=== PATIENT | female | born 1955 | race Caucasian/White ===

== ENCOUNTER 2020-05-27 07:02 | Inpatient (IN) ==
[2020-05-24 12:15] LABS: Basophils % 0.7 % (0.0-0.8); Eosinophils # 0.1 10*3/uL (0.0-0.87); Eosinophils % 1.6 % (0.00-10.9); Hematocrit 31.8 VOL% (35.7-47.0); Hemoglobin 9.7 GM/DL (12.0-16.0); Immature Granulocytes % 0.2 %; Immature Granulocytes Absolute 0.01 #; Lymphocytes # 0.5 10*3/uL (1.4-4.0); Lymphocytes % 11.9 % (21.3-54.2); Mean Corpuscular HGB Conc 30.5 GM/DL (32-36); Mean Corpuscular Volume 87.6 FL (87-102); Mean Platelet Volume 9.5 FL (9.6-12.0); Monocytes % 9.8 % (1.7-12.7); Neutrophils % 75.8 % (38.7-73.9); Platelet Count 302 T/CUMM (130-400); Red Blood Count 3.63 MC/CUMM (3.8-5.5); White Blood Count 4.3 T/CUMM (4-12)
[2020-05-24 12:26] LABS: PT Patient Result 11.2 SECS (9.8-11.9); Partial Thromboplastin Time 26.8 SECS (23.9-33.8)
[2020-05-24 12:28] LABS: Calcium 9.1 MG/DL (8.5-10.1); Osmolality,Calculated 284.4 MOS/KG (273-304); Potassium 3.5 MMOL/L (3.5-5.1)
[~2020-05-27 07:02] MED LIST: cefOXitin 1,000 MG in SYRINGE 1 EACH IV ONE
[2020-05-27] MEDS ORDERED: LACTATED RINGERS 1,000 ML IV SCH (07:30)
[2020-05-27] MEDS ORDERED: DIAZEPAM 5 MG TABLET PO ONE (08:23)
[2020-05-27] MEDS ORDERED: SCOPOLAMINE 1.5 MG PATCH TRANSDERM ONE ×2 (08:24→08:28)
[2020-05-27] MEDS ORDERED: FAMOTIDINE 20 MG TABLET PO ONE (08:24)
[2020-05-27] MEDS ORDERED: FAMOTIDINE 20 MG TABLET ONE (08:28)
[2020-05-27] MEDS ORDERED: LIDOCAINE 1% 5 ML VIAL ONE (08:31)
[2020-05-27] MEDS ORDERED: BUPIVACAINE MPF 0.25% 30 ML VIAL ONE (08:31)
[2020-05-27] MEDS ORDERED: ROCURONIUM 50 MG/5 ML VIAL IV ONE ×2 (08:32→11:14)
[2020-05-27] MEDS ORDERED: LIDOCAINE 2% 5 ML VIAL ONE (08:32)
[2020-05-27] MEDS ORDERED: SEVOFLURANE 1 UNIT/15 MINUTE INH ONE ×7 (08:32→11:38)
[2020-05-27] MEDS ORDERED: propofoL 200 MG/20 ML VIAL IV ONE (08:32)
[2020-05-27] MEDS ORDERED: MIDAZOLAM 2 MG/2 ML VIAL ONE (08:42)
[2020-05-27] MEDS ORDERED: fentaNYL 100 MCG/2 ML VIAL ONE (08:42)
[2020-05-27] MEDS ORDERED: KETOROLAC 30 MG/1 ML VIAL ONE (10:33)
[2020-05-27] MEDS ORDERED: DEXAMETHASONE 4 MG/1 ML VIAL ONE ×2 (10:33→11:37)
[2020-05-27] MEDS ORDERED: ONDANSETRON 4 MG/2 ML VIAL ONE (10:33)
[2020-05-27] MEDS ORDERED: ACETAMINOPHEN 1,000 MG/100 ML VIAL IV ONE ×2 (10:33→11:37)
[2020-05-27] MEDS ORDERED: NEOSTIGMINE 10 MG/10 ML VIAL ONE (11:37)
[2020-05-27] MEDS ORDERED: GLYCOPYRROLATE 0.4 MG/2 ML VIAL ONE (11:37)
[2020-05-27] MEDS ORDERED: PHENYLEPHRINE 1 MG/10 ML SYRINGE IV ONE (11:37)
[2020-05-27] MEDS ORDERED: TISSUE ADHESIVE 1 EACH APPLICATOR TOP ONE (11:51)
[2020-05-27] MEDS ORDERED: LACTATED RINGERS 1,000 ML IV ONE (12:24)
[2020-05-27] MEDS: DEXTROSE 5% LACTATED RINGERS 1,000 ML IV SCH ×2 (14:41→23:43)
[2020-05-27] MEDS: HYDROmorphone 2 MG/1 ML VIAL IV PRN ×3 (14:41→23:27)
[2020-05-27] MEDS: ceFAZolin 2,000 MG in PREMIX 1 EACH IV SCH (19:02)
[2020-05-27] MEDS: ONDANSETRON 4 MG/2 ML VIAL IV PRN (23:27)
[2020-05-28] MEDS: ceFAZolin 2,000 MG in PREMIX 1 EACH IV SCH (02:58)
[2020-05-28] MEDS: ONDANSETRON 4 MG/2 ML VIAL IV PRN ×2 (03:12→14:09)
[2020-05-28] MEDS: HYDROmorphone 2 MG/1 ML VIAL IV PRN ×3 (03:12→14:08)
[2020-05-28 05:55] LABS: Basophils % 0.1 % (0.0-0.8); Eosinophils % 0.1 % (0.00-10.9); Hematocrit 25.9 VOL% (35.7-47.0); Hemoglobin 7.7 GM/DL (12.0-16.0); Immature Granulocytes % 0.5 %; Immature Granulocytes Absolute 0.04 #; Lymphocytes # 0.3 10*3/uL (1.4-4.0); Lymphocytes % 4.4 % (21.3-54.2); Mean Corpuscular HGB Conc 29.7 GM/DL (32-36); Mean Platelet Volume 9.8 FL (9.6-12.0); Monocytes % 11.8 % (1.7-12.7); Neutrophils % 83.1 % (38.7-73.9); Platelet Count 256 T/CUMM (130-400); Red Blood Count 2.91 MC/CUMM (3.8-5.5); White Blood Count 7.5 T/CUMM (4-12)
[2020-05-28 06:28] LABS: Calcium 8.8 MG/DL (8.5-10.1); Osmolality,Calculated 285.1 MOS/KG (273-304); Potassium 4.3 MMOL/L (3.5-5.1)
[2020-05-28] MEDS: ENOXAPARIN 40 MG/0.4 ML SYRINGE SUBCUT SCH (06:35)
[2020-05-28 07:14] LABS: Eosinophils 1 % (0-10); Lymphocytes 10 % (20-55); Segmented Neutrophils 84 % (50-85); Total Cells Counted 100
[2020-05-28 07:15] LABS: Hypochromasia 2+; Microcytosis 1+; Polychromasia Slight
[2020-05-28] MEDS: DEXTROSE 5% LACTATED RINGERS 1,000 ML IV SCH ×3 (09:16→22:03)
[2020-05-29] MEDS: ONDANSETRON 4 MG/2 ML VIAL IV PRN ×3 (01:12→13:43)
[2020-05-29] MEDS: HYDROmorphone 2 MG/1 ML VIAL IV PRN ×3 (01:13→13:43)
[2020-05-29] MEDS: ENOXAPARIN 40 MG/0.4 ML SYRINGE SUBCUT SCH (06:28)
[2020-05-29 10:39] LABS: Basophils % 0.3 % (0.0-0.8); Eosinophils # 0.1 10*3/uL (0.0-0.87); Eosinophils % 1.1 % (0.00-10.9); Hematocrit 26.9 VOL% (35.7-47.0); Immature Granulocytes % 0.5 %; Immature Granulocytes Absolute 0.03 #; Lymphocytes # 0.3 10*3/uL (1.4-4.0); Lymphocytes % 4.9 % (21.3-54.2); Mean Corpuscular HGB Conc 29.7 GM/DL (32-36); Mean Corpuscular Volume 87.3 FL (87-102); Mean Platelet Volume 10.3 FL (9.6-12.0); Monocytes % 11.1 % (1.7-12.7); Neutrophils % 82.1 % (38.7-73.9); Platelet Count 267 T/CUMM (130-400); Red Blood Count 3.08 MC/CUMM (3.8-5.5); Red Cell Distribution Width 15.5 % (9.3-17.3); White Blood Count 6.1 T/CUMM (4-12)
[2020-05-29] MEDS ORDERED: ACETAMINOPHEN/CODEINE 300-30 MG TABLET PO PRN (11:27)
[2020-05-29 11:28] LABS: Band Neutrophils 6 % (0-10); Eosinophils 2 % (0-10); Lymphocytes 5 % (20-55); Platelet Estimate Normal; Segmented Neutrophils 77 % (50-85); Total Cells Counted 100
[2020-05-29 11:29] LABS: Anisocytosis Slight; Hypochromasia 1+
[2020-05-29] MEDS: DEXTROSE 5% LACTATED RINGERS 1,000 ML IV SCH (12:53)
[2020-05-30] MEDS: RIVAROXABAN 15 MG TABLET PO SCH (09:07)
[2020-05-30] MEDS: PANTOPRAZOLE 40 MG TABLET PO SCH (09:07)
[2020-05-30] MEDS: DEXTROSE 5% LACTATED RINGERS 1,000 ML IV SCH (10:04)
[2020-05-30] MEDS: HYDROmorphone 2 MG/1 ML VIAL IV PRN (10:10)
[2020-05-31] MEDS: DEXTROSE 5% LACTATED RINGERS 1,000 ML IV SCH (05:29)
[2020-05-31] MEDS: PANTOPRAZOLE 40 MG TABLET PO SCH (08:14)
[2020-05-31] MEDS: RIVAROXABAN 15 MG TABLET PO SCH (08:14)
[2020-05-31 08:35] LABS: Basophils % 0.3 % (0.0-0.8); Eosinophils # 0.2 10*3/uL (0.0-0.87); Eosinophils % 5.3 % (0.00-10.9); Hematocrit 28.4 VOL% (35.7-47.0); Hemoglobin 8.7 GM/DL (12.0-16.0); Immature Granulocytes % 0.3 %; Immature Granulocytes Absolute 0.01 #; Lymphocytes # 0.4 10*3/uL (1.4-4.0); Mean Corpuscular HGB Conc 30.6 GM/DL (32-36); Mean Corpuscular Volume 86.6 FL (87-102); Mean Platelet Volume 9.8 FL (9.6-12.0); Monocytes % 14.2 % (1.7-12.7); Neutrophils % 69.9 % (38.7-73.9); Platelet Count 275 T/CUMM (130-400); Red Blood Count 3.28 MC/CUMM (3.8-5.5); Red Cell Distribution Width 15.4 % (9.3-17.3); White Blood Count 3.6 T/CUMM (4-12)
[2020-05-31 08:53] LABS: Calcium 8.4 MG/DL (8.5-10.1); Osmolality,Calculated 278.3 MOS/KG (273-304); Potassium 3.4 MMOL/L (3.5-5.1)
[2020-05-31] MEDS: ONDANSETRON 4 MG/2 ML VIAL IV PRN (12:20)
[2020-05-31] MEDS: METOCLOPRAMIDE 10 MG/2 ML VIAL IV SCH ×3 (12:20→23:59)
[2020-05-31] MEDS: HYDROmorphone 2 MG/1 ML VIAL IV PRN (16:58)
[2020-05-31] MEDS ORDERED: POTASSIUM CHLORIDE RIDER 10 MEQ in PREMIX 1 EACH IV PRN (21:44)
[2020-06-01] MEDS: POTASSIUM CHLORIDE RIDER 20 MEQ in PREMIX 1 EACH IV PRN (00:02)
[2020-06-01] MEDS: DEXTROSE 5% LACTATED RINGERS 1,000 ML IV SCH (04:45)
[2020-06-01] MEDS: ONDANSETRON 4 MG/2 ML VIAL IV PRN (05:22)
[2020-06-01] MEDS: HYDROmorphone 2 MG/1 ML VIAL IV PRN (06:17)
[2020-06-01] MEDS: METOCLOPRAMIDE 10 MG/2 ML VIAL IV SCH ×3 (07:17→17:07)
[2020-06-01] MEDS: RIVAROXABAN 15 MG TABLET PO SCH (09:52)
[2020-06-01] MEDS: PANTOPRAZOLE 40 MG TABLET PO SCH (09:53)
[2020-06-02] MEDS: METOCLOPRAMIDE 10 MG/2 ML VIAL IV SCH ×4 (00:30→17:50)
[2020-06-02] MEDS: DEXTROSE 5% LACTATED RINGERS 1,000 ML IV SCH ×2 (00:33→16:36)
[2020-06-02] MEDS: ONDANSETRON 4 MG/2 ML VIAL IV PRN ×3 (06:01→19:20)
[2020-06-02 08:43] LABS: Basophils % 0.6 % (0.0-0.8); Eosinophils # 0.2 10*3/uL (0.0-0.87); Eosinophils % 4.4 % (0.00-10.9); Hematocrit 31.6 VOL% (35.7-47.0); Hemoglobin 9.2 GM/DL (12.0-16.0); Immature Granulocytes % 0.2 %; Immature Granulocytes Absolute 0.01 #; Lymphocytes # 0.4 10*3/uL (1.4-4.0); Lymphocytes % 7.7 % (21.3-54.2); Mean Corpuscular HGB Conc 29.1 GM/DL (32-36); Mean Corpuscular Volume 88.5 FL (87-102); Mean Platelet Volume 9.6 FL (9.6-12.0); Monocytes % 13.9 % (1.7-12.7); Neutrophils % 73.2 % (38.7-73.9); Platelet Count 314 T/CUMM (130-400); Red Blood Count 3.57 MC/CUMM (3.8-5.5); Red Cell Distribution Width 15.3 % (9.3-17.3)
[2020-06-02 09:07] LABS: Albumin 2.6 G/DL (3.4-5.0); Bilirubin,Total 0.4 MG/DL (0.2-1.0); Calcium 8.7 MG/DL (8.5-10.1); Osmolality,Calculated 281.1 MOS/KG (273-304); Potassium 4.2 MMOL/L (3.5-5.1); Total Protein 6.3 G/DL (6.4-8.3)
[2020-06-02] MEDS: PANTOPRAZOLE 40 MG TABLET PO SCH (09:20)
[2020-06-02] MEDS: RIVAROXABAN 15 MG TABLET PO SCH (09:20)
[2020-06-02] MEDS: HYDROmorphone 2 MG/1 ML VIAL IV PRN ×2 (10:15→19:57)
[2020-06-02] MEDS: FAT EMULSION 20% 250 ML IV SCH (16:20)
[2020-06-02] MEDS ORDERED: TRACE ELEMENTS (5) 1 ML, MULTIVITAMIN INJ 10 ML in AMINO ACIDS/DEXT/LYTES 5-15% 2,000 ML IV SCH (17:00)
[2020-06-03] MEDS: METOCLOPRAMIDE 10 MG/2 ML VIAL IV SCH ×5 (00:58→23:09)
[2020-06-03 07:44] LABS: Calcium 8.7 MG/DL (8.5-10.1); Osmolality,Calculated 273.8 MOS/KG (273-304); Potassium 3.6 MMOL/L (3.5-5.1)
[2020-06-03] MEDS: PANTOPRAZOLE 40 MG TABLET PO SCH (12:01)
[2020-06-03] MEDS: RIVAROXABAN 15 MG TABLET PO SCH (12:01)
[2020-06-03] MEDS: HYDROCORTISONE 100 MG VIAL IV SCH ×2 (12:19→17:51)
[2020-06-03] MEDS: ONDANSETRON 4 MG/2 ML VIAL IV PRN (12:26)
[2020-06-03] MEDS ORDERED: PHENOL 1.4% THROAT SPRAY 177 ML BOTTLE PO PRN (12:44)
[2020-06-03] MEDS ORDERED: BENZOCAINE 20% SPRAY 57 GM CAN TOP ONE (13:00)
[2020-06-03] MEDS: HYDROmorphone 2 MG/1 ML VIAL IV PRN ×2 (14:14→17:48)
[2020-06-03] MEDS: FAT EMULSION 20% 250 ML IV SCH (14:14)
[2020-06-03] MEDS: LYTES IV SCH (17:40)
[2020-06-03] MEDS: AMINO ACIDS IV SCH (17:40)
[2020-06-03] MEDS: TRACE ELEMENTS IV SCH (17:40)
[2020-06-03] MEDS: DEXT IV SCH (17:40)
[2020-06-04] MEDS: HYDROCORTISONE 100 MG VIAL IV SCH ×2 (01:36→10:55)
[2020-06-04] MEDS: METOCLOPRAMIDE 10 MG/2 ML VIAL IV SCH ×3 (06:30→17:47)
[2020-06-04 08:41] LABS: Hematocrit 30.3 VOL% (35.7-47.0); Hemoglobin 8.8 GM/DL (12.0-16.0); Immature Granulocytes % 0.7 %; Immature Granulocytes Absolute 0.03 #; Lymphocytes # 0.2 10*3/uL (1.4-4.0); Mean Corpuscular Volume 86.6 FL (87-102); Mean Platelet Volume 10.1 FL (9.6-12.0); Monocytes % 7.4 % (1.7-12.7); Neutrophils % 86.9 % (38.7-73.9); Platelet Count 259 T/CUMM (130-400); Red Cell Distribution Width 15.2 % (9.3-17.3); White Blood Count 4.4 T/CUMM (4-12)
[2020-06-04 08:59] LABS: Calcium 8.7 MG/DL (8.5-10.1); Potassium 3.8 MMOL/L (3.5-5.1)
[2020-06-04] MEDS ORDERED: ALTEPLASE 2 MG VIAL INTRACATH ONE (09:25)
[2020-06-04] MEDS: RIVAROXABAN 15 MG TABLET PO SCH (09:34)
[2020-06-04] MEDS: PANTOPRAZOLE 40 MG TABLET PO SCH (09:34)
[2020-06-04] MEDS: FAT EMULSION 20% 250 ML IV SCH (15:03)
[2020-06-04] MEDS: TRACE ELEMENTS (5) 1 ML, MULTIVITAMIN INJ 10 ML in AMINO ACIDS/DEXT/LYTES 5-15% 2,000 ML IV SCH (17:46)
[2020-06-05] MEDS: METOCLOPRAMIDE 10 MG/2 ML VIAL IV SCH ×4 (00:34→17:57)
[2020-06-05] MEDS: PANTOPRAZOLE 40 MG TABLET PO SCH (08:34)
[2020-06-05] MEDS: RIVAROXABAN 15 MG TABLET PO SCH (08:34)
[2020-06-05] MEDS: ONDANSETRON 4 MG/2 ML VIAL IV PRN ×2 (10:40→22:17)
[2020-06-05] MEDS: HYDROmorphone 2 MG/1 ML VIAL IV PRN ×2 (10:40→22:20)
[2020-06-05] MEDS: PIPERACILLIN/TAZOBACTAM 3,375 MG in SODIUM CHLORIDE 0.9% 100 ML IV SCH ×2 (12:42→20:38)
[2020-06-05] MEDS: FAT EMULSION 20% 250 ML IV SCH (14:43)
[2020-06-05] MEDS: DEXT IV SCH (17:41)
[2020-06-05] MEDS: AMINO ACIDS IV SCH (17:41)
[2020-06-05] MEDS: LYTES IV SCH (17:41)
[2020-06-05] MEDS: TRACE ELEMENTS IV SCH (17:41)
[2020-06-05] MEDS: ACETAMINOPHEN 325 MG TABLET PO PRN (20:38)
[2020-06-06] MEDS: METOCLOPRAMIDE 10 MG/2 ML VIAL IV SCH ×5 (00:06→23:09)
[2020-06-06] MEDS: HYDROmorphone 2 MG/1 ML VIAL IV PRN ×4 (00:24→12:56)
[2020-06-06] MEDS: PIPERACILLIN/TAZOBACTAM 3,375 MG in SODIUM CHLORIDE 0.9% 100 ML IV SCH ×3 (05:10→20:42)
[2020-06-06] MEDS: RIVAROXABAN 15 MG TABLET PO SCH (09:14)
[2020-06-06] MEDS: ONDANSETRON 4 MG/2 ML VIAL IV PRN ×2 (09:14→12:57)
[2020-06-06] MEDS: PANTOPRAZOLE 40 MG TABLET PO SCH (09:14)
[2020-06-06] MEDS: FAT EMULSION 20% 250 ML IV SCH (14:19)
[2020-06-06] MEDS: DEXT IV SCH (16:58)
[2020-06-06] MEDS: LYTES IV SCH (16:58)
[2020-06-06] MEDS: AMINO ACIDS IV SCH (16:58)
[2020-06-06] MEDS: TRACE ELEMENTS IV SCH (16:58)
[2020-06-07] MEDS: HYDROmorphone 2 MG/1 ML VIAL IV PRN (01:07)
[2020-06-07] MEDS: METOCLOPRAMIDE 10 MG/2 ML VIAL IV SCH ×3 (05:02→17:55)
[2020-06-07] MEDS: PIPERACILLIN/TAZOBACTAM 3,375 MG in SODIUM CHLORIDE 0.9% 100 ML IV SCH ×3 (05:06→22:00)
[2020-06-07 06:14] LABS: Calcium 6.9 MG/DL (8.5-10.1); Osmolality,Calculated 281.3 MOS/KG (273-304); Potassium 3.1 MMOL/L (3.5-5.1)
[2020-06-07] MEDS: RIVAROXABAN 10 MG TABLET PO SCH (09:25)
[2020-06-07] MEDS: PANTOPRAZOLE 40 MG TABLET PO SCH (09:26)
[2020-06-07] MEDS: ERYTHROMYCIN INJ 125 MG in SODIUM CHLORIDE 0.9% 100 ML IV SCH ×2 (09:43→17:55)
[2020-06-07] MEDS: FAT EMULSION 20% 250 ML IV SCH (14:30)
[2020-06-07] MEDS: POTASSIUM CHLORIDE RIDER 20 MEQ in PREMIX 1 EACH IV PRN ×2 (15:55→17:55)
[2020-06-07] MEDS: TRACE ELEMENTS (5) 1 ML, MULTIVITAMIN INJ 10 ML in AMINO ACIDS/DEXT/LYTES 5-15% 2,000 ML IV SCH (21:57)
[2020-06-07] MEDS: ONDANSETRON 4 MG/2 ML VIAL IV PRN (22:16)
[2020-06-08] MEDS: ACETAMINOPHEN 325 MG TABLET PO PRN (00:17)
[2020-06-08] MEDS: METOCLOPRAMIDE 10 MG/2 ML VIAL IV SCH ×4 (00:17→18:44)
[2020-06-08] MEDS: ERYTHROMYCIN INJ 125 MG in SODIUM CHLORIDE 0.9% 100 ML IV SCH ×2 (01:59→09:01)
[2020-06-08] MEDS: PIPERACILLIN/TAZOBACTAM 3,375 MG in SODIUM CHLORIDE 0.9% 100 ML IV SCH ×3 (05:20→21:16)
[2020-06-08] MEDS ORDERED: BISACODYL 10 MG SUPP RECTAL ONE (11:12)
[2020-06-08] MEDS: RIVAROXABAN 10 MG TABLET PO SCH (12:06)
[2020-06-08] MEDS: PANTOPRAZOLE 40 MG TABLET PO SCH (12:07)
[2020-06-08] MEDS: ONDANSETRON 4 MG/2 ML VIAL IV PRN (12:13)
[2020-06-08] MEDS: HYDROmorphone 2 MG/1 ML VIAL IV PRN (12:14)
[2020-06-08] MEDS: FAT EMULSION 20% 250 ML IV SCH (15:00)
[2020-06-08] MEDS: TRACE ELEMENTS IV SCH (19:16)
[2020-06-08] MEDS: AMINO ACIDS IV SCH (19:16)
[2020-06-08] MEDS: DEXT IV SCH (19:16)
[2020-06-08] MEDS: LYTES IV SCH (19:16)
[2020-06-09] MEDS: METOCLOPRAMIDE 10 MG/2 ML VIAL IV SCH ×4 (01:37→18:26)
[2020-06-09] MEDS: PIPERACILLIN/TAZOBACTAM 3,375 MG in SODIUM CHLORIDE 0.9% 100 ML IV SCH ×3 (05:18→21:45)
[2020-06-09] MEDS: ONDANSETRON 4 MG/2 ML VIAL IV PRN (08:09)
[2020-06-09] MEDS: RIVAROXABAN 10 MG TABLET PO SCH (09:16)
[2020-06-09] MEDS: PANTOPRAZOLE 40 MG TABLET PO SCH (09:17)
[2020-06-09] MEDS: FAT EMULSION 20% 250 ML IV SCH (14:41)
[2020-06-09] MEDS: TRACE ELEMENTS (5) 1 ML, MULTIVITAMIN INJ 10 ML in AMINO ACIDS/DEXT/LYTES 5-15% 2,000 ML IV SCH (17:30)
[2020-06-10] MEDS: METOCLOPRAMIDE 10 MG/2 ML VIAL IV SCH ×5 (00:33→18:25)
[2020-06-10] MEDS: PIPERACILLIN/TAZOBACTAM 3,375 MG in SODIUM CHLORIDE 0.9% 100 ML IV SCH ×3 (05:45→21:31)
[2020-06-10 08:34] LABS: Calcium 7.9 MG/DL (8.5-10.1); Osmolality,Calculated 272.1 MOS/KG (273-304); Potassium 3.6 MMOL/L (3.5-5.1)
[2020-06-10] MEDS: PANTOPRAZOLE 40 MG TABLET PO SCH (09:45)
[2020-06-10] MEDS: FAT EMULSION 20% 250 ML IV SCH (15:22)
[2020-06-10] MEDS: AMINO ACIDS IV SCH (18:35)
[2020-06-10] MEDS: DEXT IV SCH (18:35)
[2020-06-10] MEDS: TRACE ELEMENTS IV SCH (18:35)
[2020-06-10] MEDS: LYTES IV SCH (18:35)
[2020-06-11] MEDS: METOCLOPRAMIDE 10 MG/2 ML VIAL IV SCH ×4 (00:39→17:40)
[2020-06-11] MEDS: PIPERACILLIN/TAZOBACTAM 3,375 MG in SODIUM CHLORIDE 0.9% 100 ML IV SCH ×3 (05:34→22:24)
[2020-06-11] MEDS ORDERED: BUPIVACAINE MPF 0.25% 30 ML VIAL ONE (06:32)
[2020-06-11] MEDS ORDERED: LIDOCAINE 1% 20 ML VIAL ONE (06:32)
[2020-06-11] MEDS ORDERED: fentaNYL 100 MCG/2 ML VIAL ONE (06:36)
[2020-06-11] MEDS ORDERED: MIDAZOLAM 2 MG/2 ML VIAL ONE (06:37)
[2020-06-11] MEDS ORDERED: LACTATED RINGERS 1,000 ML IV SCH (07:00)
[2020-06-11] MEDS ORDERED: SCOPOLAMINE 1.5 MG PATCH TRANSDERM ONE (07:22)
[2020-06-11] MEDS ORDERED: SUCCINYLCHOLINE 200 MG/10 ML VIAL ONE (08:00)
[2020-06-11] MEDS ORDERED: ONDANSETRON 4 MG/2 ML VIAL ONE (08:00)
[2020-06-11] MEDS ORDERED: SEVOFLURANE 1 UNIT/15 MINUTE INH ONE ×4 (08:00→08:37)
[2020-06-11] MEDS ORDERED: ROCURONIUM 50 MG/5 ML VIAL IV ONE (08:00)
[2020-06-11] MEDS ORDERED: DEXAMETHASONE 4 MG/1 ML VIAL ONE (08:00)
[2020-06-11] MEDS ORDERED: NEOSTIGMINE 10 MG/10 ML VIAL ONE (08:00)
[2020-06-11] MEDS ORDERED: GLYCOPYRROLATE 0.4 MG/2 ML VIAL ONE (08:00)
[2020-06-11] MEDS ORDERED: PHENYLEPHRINE 1 MG/10 ML SYRINGE IV ONE (08:00)
[2020-06-11] MEDS ORDERED: propofoL 200 MG/20 ML VIAL IV ONE (08:00)
[2020-06-11] MEDS ORDERED: LIDOCAINE 2% 5 ML VIAL ONE (08:00)
[2020-06-11] MEDS: PANTOPRAZOLE 40 MG TABLET PO SCH (08:09)
[2020-06-11] MEDS ORDERED: TISSUE ADHESIVE 1 EACH APPLICATOR TOP ONE (08:09)
[2020-06-11] MEDS ORDERED: ONDANSETRON 4 MG/2 ML VIAL IV PRN (08:44)
[2020-06-11] MEDS: HYDROmorphone 2 MG/1 ML VIAL IV PRN ×4 (08:51→09:15)
[2020-06-11] MEDS: MORPHINE 4 MG/1 ML VIAL IV PRN ×3 (12:08→20:40)
[2020-06-11] MEDS: ONDANSETRON 4 MG/2 ML VIAL IV PRN ×3 (12:08→20:38)
[2020-06-11 13:28] LABS: Basophils % 0.1 % (0.0-0.8); Hemoglobin 8.3 GM/DL (12.0-16.0); Immature Granulocytes % 0.7 %; Immature Granulocytes Absolute 0.05 #; Lymphocytes # 0.2 10*3/uL (1.4-4.0); Lymphocytes % 3.1 % (21.3-54.2); Mean Corpuscular HGB Conc 29.6 GM/DL (32-36); Mean Corpuscular Volume 84.6 FL (87-102); Mean Platelet Volume 12.5 FL (9.6-12.0); Monocytes % 7.7 % (1.7-12.7); Neutrophils % 88.4 % (38.7-73.9); Platelet Count 174 T/CUMM (130-400); Red Blood Count 3.31 MC/CUMM (3.8-5.5); Red Cell Distribution Width 15.5 % (9.3-17.3); White Blood Count 6.8 T/CUMM (4-12)
[2020-06-11] MEDS: FAT EMULSION 20% 250 ML IV SCH (15:03)
[2020-06-11 15:49] LABS: Band Neutrophils 2 % (0-10); Lymphocytes 5 % (20-55); Microcytosis Slight; Segmented Neutrophils 89 % (50-85); Total Cells Counted 100
[2020-06-11 15:50] LABS: Burr Cells 4+; Hypochromasia 2+; Poikilocytosis 2+; Polychromasia Few; Toxic Granulation 2+
[2020-06-11 15:51] LABS: Platelet Estimate Decreased; Schistocytes Few
[2020-06-11] MEDS: TRACE ELEMENTS (5) 1 ML, MULTIVITAMIN INJ 10 ML in AMINO ACIDS/DEXT/LYTES 5-15% 2,000 ML IV SCH (17:39)
[2020-06-12] MEDS: MORPHINE 4 MG/1 ML VIAL IV PRN ×3 (00:21→09:33)
[2020-06-12] MEDS: ONDANSETRON 4 MG/2 ML VIAL IV PRN ×4 (00:21→13:44)
[2020-06-12] MEDS: METOCLOPRAMIDE 10 MG/2 ML VIAL IV SCH ×4 (02:53→17:18)
[2020-06-12] MEDS: PIPERACILLIN/TAZOBACTAM 3,375 MG in SODIUM CHLORIDE 0.9% 100 ML IV SCH ×3 (06:11→20:31)
[2020-06-12 07:24] LABS: Basophils % 0.2 % (0.0-0.8); Eosinophils # 0.1 10*3/uL (0.0-0.87); Eosinophils % 1.7 % (0.00-10.9); Hematocrit 28.6 VOL% (35.7-47.0); Hemoglobin 8.7 GM/DL (12.0-16.0); Immature Granulocytes Absolute 0.05 #; Lymphocytes # 0.7 10*3/uL (1.4-4.0); Lymphocytes % 14.3 % (21.3-54.2); Mean Corpuscular HGB Conc 30.4 GM/DL (32-36); Mean Corpuscular Volume 83.9 FL (87-102); Mean Platelet Volume 12.5 FL (9.6-12.0); Monocytes % 10.7 % (1.7-12.7); Neutrophils % 72.1 % (38.7-73.9); Platelet Count 194 T/CUMM (130-400); Red Blood Count 3.41 MC/CUMM (3.8-5.5); Red Cell Distribution Width 15.4 % (9.3-17.3); White Blood Count 4.8 T/CUMM (4-12)
[2020-06-12] MEDS: PANTOPRAZOLE 40 MG TABLET PO SCH (08:10)
[2020-06-12 08:35] LABS: Albumin 2.1 G/DL (3.4-5.0); Bilirubin,Total 0.7 MG/DL (0.2-1.0); Calcium 8.4 MG/DL (8.5-10.1); Osmolality,Calculated 274.1 MOS/KG (273-304); Potassium 3.7 MMOL/L (3.5-5.1); Total Protein 6.1 G/DL (6.4-8.3)
[2020-06-12] MEDS ORDERED: METHOCARBAMOL 1,000 MG/10 ML VIAL IV PRN (11:14)
[2020-06-12] MEDS ORDERED: SALIVA SUBSTITUTE SPRAY 60 ML CAN SWISH/SWAL PRN (11:19)
[2020-06-12] MEDS ORDERED: METHOCARBAMOL INJ 500 MG in SODIUM CHLORIDE 0.9% 100 ML IV PRN (14:00)
[2020-06-12] MEDS: HYDROmorphone 2 MG/1 ML VIAL IV PRN ×2 (14:40→20:52)
[2020-06-12] MEDS: FAT EMULSION 20% 250 ML IV SCH (17:15)
[2020-06-12] MEDS: DEXT IV SCH (17:16)
[2020-06-12] MEDS: AMINO ACIDS IV SCH (17:16)
[2020-06-12] MEDS: LYTES IV SCH (17:16)
[2020-06-12] MEDS: TRACE ELEMENTS IV SCH (17:16)
[2020-06-13] MEDS: METOCLOPRAMIDE 10 MG/2 ML VIAL IV SCH ×4 (01:22→18:08)
[2020-06-13] MEDS: ONDANSETRON 4 MG/2 ML VIAL IV PRN ×2 (03:54→10:00)
[2020-06-13] MEDS: HYDROmorphone 2 MG/1 ML VIAL IV PRN (09:58)
[2020-06-13] MEDS: PANTOPRAZOLE 40 MG TABLET PO SCH (11:28)
[2020-06-13] MEDS: guaiFENesin 200 MG/10 ML UDCUP PO PRN (15:21)
[2020-06-13] MEDS: FAT EMULSION 20% 250 ML IV SCH (15:25)
[2020-06-13] MEDS: LYTES IV SCH (17:15)
[2020-06-13] MEDS: AMINO ACIDS IV SCH (17:15)
[2020-06-13] MEDS: DEXT IV SCH (17:15)
[2020-06-13] MEDS: TRACE ELEMENTS IV SCH (17:15)
[2020-06-14] MEDS: METOCLOPRAMIDE 10 MG/2 ML VIAL IV SCH ×5 (00:51→23:42)
[2020-06-14 06:04] LABS: Basophils % 0.3 % (0.0-0.8); Eosinophils # 0.1 10*3/uL (0.0-0.87); Eosinophils % 1.6 % (0.00-10.9); Hematocrit 25.9 VOL% (35.7-47.0); Hemoglobin 7.8 GM/DL (12.0-16.0); Immature Granulocytes % 0.8 %; Immature Granulocytes Absolute 0.03 #; Lymphocytes # 0.2 10*3/uL (1.4-4.0); Lymphocytes % 6.3 % (21.3-54.2); Mean Corpuscular HGB Conc 30.1 GM/DL (32-36); Mean Corpuscular Volume 83.8 FL (87-102); Mean Platelet Volume 11.6 FL (9.6-12.0); Monocytes % 8.4 % (1.7-12.7); Neutrophils % 82.6 % (38.7-73.9); Platelet Count 219 T/CUMM (130-400); Red Blood Count 3.09 MC/CUMM (3.8-5.5); Red Cell Distribution Width 16.1 % (9.3-17.3); White Blood Count 3.8 T/CUMM (4-12)
[2020-06-14 06:27] LABS: Hypochromasia 2+; Lymphocytes 8 % (20-55); Microcytosis 1+; Segmented Neutrophils 86 % (50-85); Total Cells Counted 100
[2020-06-14 06:28] LABS: Platelet Estimate Normal
[2020-06-14 06:37] LABS: Calcium 8.2 MG/DL (8.5-10.1); Osmolality,Calculated 274.8 MOS/KG (273-304); Potassium 3.5 MMOL/L (3.5-5.1)
[2020-06-14] MEDS: PANTOPRAZOLE 40 MG TABLET PO SCH (08:47)
[2020-06-14] MEDS: RIVAROXABAN 10 MG TABLET PO SCH (08:48)
[2020-06-14] MEDS ORDERED: KETOROLAC 15 MG/1 ML VIAL IV PRN (10:26)
[2020-06-14] MEDS: ONDANSETRON 4 MG/2 ML VIAL IV PRN (15:45)
[2020-06-14] MEDS: HYDROmorphone 2 MG/1 ML VIAL IV PRN (15:50)
[2020-06-14] MEDS: FAT EMULSION 20% 250 ML IV SCH (15:57)
[2020-06-14] MEDS: TRACE ELEMENTS (5) 1 ML, MULTIVITAMIN INJ 10 ML in AMINO ACIDS/DEXT/LYTES 5-15% 2,000 ML IV SCH (18:08)
[2020-06-14] MEDS: FONDAPARINUX 2.5 MG/0.5 ML SYRINGE SUBCUT SCH (19:32)
[2020-06-15] MEDS: METOCLOPRAMIDE 10 MG/2 ML VIAL IV SCH ×4 (05:23→23:12)
[2020-06-15] MEDS: PANTOPRAZOLE 40 MG TABLET PO SCH (09:40)
[2020-06-15] MEDS ORDERED: ALPRAZolam 0.25 MG TABLET PO PRN (09:56)
[2020-06-15] MEDS: DIAZEPAM 10 MG/2 ML SYRINGE IV SCH ×2 (12:24→20:59)
[2020-06-15] MEDS: FAT EMULSION 20% 250 ML IV SCH (14:57)
[2020-06-15] MEDS: DEXT IV SCH (17:33)
[2020-06-15] MEDS: AMINO ACIDS IV SCH (17:33)
[2020-06-15] MEDS: LYTES IV SCH (17:33)
[2020-06-15] MEDS: TRACE ELEMENTS IV SCH (17:33)
[2020-06-15] MEDS: FONDAPARINUX 2.5 MG/0.5 ML SYRINGE SUBCUT SCH (18:26)
[2020-06-16] MEDS: DIAZEPAM 10 MG/2 ML SYRINGE IV SCH ×3 (03:19→20:45)
[2020-06-16] MEDS: METOCLOPRAMIDE 10 MG/2 ML VIAL IV SCH ×4 (06:18→23:42)
[2020-06-16] MEDS: ONDANSETRON 4 MG/2 ML VIAL IV PRN ×2 (06:57→20:46)
[2020-06-16] MEDS: HYDROmorphone 2 MG/1 ML VIAL IV PRN (06:58)
[2020-06-16] MEDS: PANTOPRAZOLE 40 MG TABLET PO SCH (08:09)
[2020-06-16] MEDS: FAT EMULSION 20% 250 ML IV SCH (16:05)
[2020-06-16] MEDS: TRACE ELEMENTS (5) 1 ML, MULTIVITAMIN INJ 10 ML in AMINO ACIDS/DEXT/LYTES 5-15% 2,000 ML IV SCH (17:10)
[2020-06-16] MEDS: FONDAPARINUX 2.5 MG/0.5 ML SYRINGE SUBCUT SCH (20:45)
[2020-06-17] MEDS: METOCLOPRAMIDE 10 MG/2 ML VIAL IV SCH ×4 (05:15→17:34)
[2020-06-17] MEDS: PANTOPRAZOLE 40 MG TABLET PO SCH (09:05)
[2020-06-17] MEDS: DIAZEPAM 10 MG/2 ML SYRINGE IV SCH (09:06)
[2020-06-17] MEDS: PANTOPRAZOLE 40 MG VIAL IV SCH (12:46)
[2020-06-17] MEDS: FAT EMULSION 20% 250 ML IV SCH (15:12)
[2020-06-17] MEDS: TRACE ELEMENTS IV SCH (17:33)
[2020-06-17] MEDS: DEXT IV SCH (17:33)
[2020-06-17] MEDS: AMINO ACIDS IV SCH (17:33)
[2020-06-17] MEDS: LYTES IV SCH (17:33)
[2020-06-17] MEDS: FONDAPARINUX 2.5 MG/0.5 ML SYRINGE SUBCUT SCH (20:49)
[2020-06-18] MEDS: ONDANSETRON 4 MG/2 ML VIAL IV PRN (01:38)
[2020-06-18] MEDS: METOCLOPRAMIDE 10 MG/2 ML VIAL IV SCH ×5 (06:00→23:22)
[2020-06-18 09:55] LABS: Albumin 2.6 G/DL (3.4-5.0); Bilirubin,Total 0.6 MG/DL (0.2-1.0); Calcium 8.8 MG/DL (8.5-10.1); Osmolality,Calculated 267.9 MOS/KG (273-304); Potassium 5.3 MMOL/L (3.5-5.1); Total Protein 7.1 G/DL (6.4-8.3)
[2020-06-18 09:57] LABS: Basophils % 0.3 % (0.0-0.8); Eosinophils # 0.2 10*3/uL (0.0-0.87); Eosinophils % 2.8 % (0.00-10.9); Hematocrit 29.1 VOL% (35.7-47.0); Hemoglobin 9.1 GM/DL (12.0-16.0); Immature Granulocytes % 1.9 %; Immature Granulocytes Absolute 0.13 #; Lymphocytes # 0.4 10*3/uL (1.4-4.0); Lymphocytes % 5.8 % (21.3-54.2); Mean Corpuscular HGB Conc 31.3 GM/DL (32-36); Mean Corpuscular Volume 80.8 FL (87-102); Mean Platelet Volume 11.6 FL (9.6-12.0); Neutrophils % 76.2 % (38.7-73.9); Platelet Count 295 T/CUMM (130-400); Red Cell Distribution Width 15.9 % (9.3-17.3); White Blood Count 6.9 T/CUMM (4-12)
[2020-06-18 10:13] LABS: Anisocytosis 1+; Platelet Estimate Normal
[2020-06-18] MEDS: PANTOPRAZOLE 40 MG VIAL IV SCH (10:24)
[2020-06-18] MEDS: HEPARIN LOCK FLUSH 500 UNIT/5 ML SYRINGE IV PRN (10:26)
[2020-06-18] MEDS ORDERED: LORAZEPAM PER TUBE PRN (12:59)
[2020-06-18] MEDS ORDERED: [UNRECOGNIZED DRUG - OTHER] PER TUBE PRN (12:59)
[2020-06-18] MEDS: FAT EMULSION 20% 250 ML IV SCH (13:26)
[2020-06-18] MEDS: SUCRALFATE 1 GM/10 ML UDCUP PO SCH (15:47)
[2020-06-18] MEDS: FONDAPARINUX 2.5 MG/0.5 ML SYRINGE SUBCUT SCH (21:28)
[2020-06-19] MEDS: METOCLOPRAMIDE 10 MG/2 ML VIAL IV SCH ×4 (06:24→23:42)
[2020-06-19] MEDS: HEPARIN LOCK FLUSH 500 UNIT/5 ML SYRINGE IV PRN (11:26)
[2020-06-19] MEDS: SUCRALFATE 1 GM/10 ML UDCUP PO SCH ×2 (11:26→15:57)
[2020-06-19] MEDS: PANTOPRAZOLE 40 MG VIAL IV SCH (11:30)
[2020-06-19] MEDS: FAT EMULSION 20% 250 ML IV SCH (15:57)
[2020-06-19] MEDS: TRACE ELEMENTS IV SCH (17:22)
[2020-06-19] MEDS: AMINO ACIDS IV SCH (17:22)
[2020-06-19] MEDS: DEXT IV SCH (17:22)
[2020-06-19] MEDS: ALUMINUM/MAGNES/SIMETH MAX STR 30 ML UDCUP PO PRN (17:22)
[2020-06-19] MEDS: LYTES IV SCH (17:22)
[2020-06-19] MEDS: FONDAPARINUX 2.5 MG/0.5 ML SYRINGE SUBCUT SCH (20:50)
[2020-06-20] MEDS: METOCLOPRAMIDE 10 MG/2 ML VIAL IV SCH ×4 (05:22→23:16)
[2020-06-20] MEDS: SUCRALFATE 1 GM/10 ML UDCUP PO SCH ×2 (10:34→17:09)
[2020-06-20] MEDS: ALUMINUM/MAGNES/SIMETH MAX STR 30 ML UDCUP PO PRN ×2 (10:34→23:15)
[2020-06-20] MEDS: HEPARIN LOCK FLUSH 500 UNIT/5 ML SYRINGE IV PRN (10:35)
[2020-06-20] MEDS: PANTOPRAZOLE 40 MG VIAL IV SCH (10:40)
[2020-06-20] MEDS: FAT EMULSION 20% 250 ML IV SCH (13:57)
[2020-06-20] MEDS: LYTES IV SCH (17:09)
[2020-06-20] MEDS: AMINO ACIDS IV SCH (17:09)
[2020-06-20] MEDS: TRACE ELEMENTS IV SCH (17:09)
[2020-06-20] MEDS: DEXT IV SCH (17:09)
[2020-06-20] MEDS: FONDAPARINUX 2.5 MG/0.5 ML SYRINGE SUBCUT SCH (20:12)
[2020-06-21] MEDS: ALUMINUM/MAGNES/SIMETH MAX STR 30 ML UDCUP PO PRN (04:54)
[2020-06-21] MEDS: METOCLOPRAMIDE 10 MG/2 ML VIAL IV SCH ×4 (05:17→23:28)
[2020-06-21 05:54] LABS: Basophils # 0.1 10*3/uL (0.0-0.2); Basophils % 0.7 % (0.0-0.8); Eosinophils # 0.1 10*3/uL (0.0-0.87); Eosinophils % 1.1 % (0.00-10.9); Hematocrit 31.4 VOL% (35.7-47.0); Hemoglobin 9.9 GM/DL (12.0-16.0); Immature Granulocytes % 2.9 %; Immature Granulocytes Absolute 0.21 #; Lymphocytes # 0.4 10*3/uL (1.4-4.0); Lymphocytes % 5.8 % (21.3-54.2); Mean Corpuscular HGB Conc 31.5 GM/DL (32-36); Mean Corpuscular Volume 79.3 FL (87-102); Mean Platelet Volume 11.4 FL (9.6-12.0); Monocytes % 16.8 % (1.7-12.7); Neutrophils % 72.7 % (38.7-73.9); Platelet Count 329 T/CUMM (130-400); Red Blood Count 3.96 MC/CUMM (3.8-5.5); Red Cell Distribution Width 15.9 % (9.3-17.3); White Blood Count 7.4 T/CUMM (4-12)
[2020-06-21 06:14] LABS: Calcium 9.6 MG/DL (8.5-10.1); Osmolality,Calculated 270.1 MOS/KG (273-304); Potassium 4.8 MMOL/L (3.5-5.1)
[2020-06-21 06:16] LABS: Albumin 2.8 G/DL (3.4-5.0); Bilirubin,Total 1.3 MG/DL (0.2-1.0); Calcium 9.2 MG/DL (8.5-10.1); Osmolality,Calculated 271.9 MOS/KG (273-304); Potassium 4.9 MMOL/L (3.5-5.1)
[2020-06-21 06:25] LABS: Hypochromasia 2+; Lymphocytes 6 % (20-55); Microcytosis 1+; Platelet Estimate Adequate; Segmented Neutrophils 72 % (50-85); Total Cells Counted 100
[2020-06-21] MEDS: PANTOPRAZOLE 40 MG VIAL IV SCH (09:17)
[2020-06-21] MEDS: SUCRALFATE 1 GM/10 ML UDCUP PO SCH ×2 (09:17→17:20)
[2020-06-21] MEDS: TRACE ELEMENTS (5) 1 ML, MULTIVITAMIN INJ 10 ML in AMINO ACIDS/DEXT/LYTES 5-15% 2,000 ML IV SCH (17:20)
[2020-06-21] MEDS: FAT EMULSION 20% 250 ML IV SCH (17:20)
[2020-06-21] MEDS: FONDAPARINUX 2.5 MG/0.5 ML SYRINGE SUBCUT SCH (20:39)
[2020-06-22] MEDS: METOCLOPRAMIDE 10 MG/2 ML VIAL IV SCH ×4 (05:20→23:22)
[2020-06-22] MEDS: SUCRALFATE 1 GM/10 ML UDCUP PO PRN (09:50)
[2020-06-22] MEDS: PANTOPRAZOLE 40 MG VIAL IV SCH (09:53)
[2020-06-22] MEDS: PROMETHAZINE INJ 12.5 MG in SODIUM CHLORIDE 0.9% 50 ML IV SCH ×3 (10:20→21:30)
[2020-06-22] MEDS: FAT EMULSION 20% 250 ML IV SCH (15:00)
[2020-06-22] MEDS: LYTES IV SCH (16:11)
[2020-06-22] MEDS: TRACE ELEMENTS IV SCH (16:11)
[2020-06-22] MEDS: DEXT IV SCH (16:11)
[2020-06-22] MEDS: AMINO ACIDS IV SCH (16:11)
[2020-06-22] MEDS: FONDAPARINUX 2.5 MG/0.5 ML SYRINGE SUBCUT SCH (21:27)
[2020-06-23] MEDS: PROMETHAZINE INJ 12.5 MG in SODIUM CHLORIDE 0.9% 50 ML IV SCH ×4 (03:00→20:43)
[2020-06-23] MEDS: METOCLOPRAMIDE 10 MG/2 ML VIAL IV SCH ×3 (05:00→17:33)
[2020-06-23 06:59] LABS: Albumin 2.7 G/DL (3.4-5.0); Bilirubin,Total 0.9 MG/DL (0.2-1.0); Calcium 9.9 MG/DL (8.5-10.1); Osmolality,Calculated 265.5 MOS/KG (273-304)
[2020-06-23] MEDS: HEPARIN LOCK FLUSH 500 UNIT/5 ML SYRINGE IV PRN (10:31)
[2020-06-23] MEDS: SUCRALFATE 1 GM/10 ML UDCUP PO PRN (10:32)
[2020-06-23] MEDS: PANTOPRAZOLE 40 MG VIAL IV SCH (10:32)
[2020-06-23] MEDS: SUCRALFATE 1 GM/10 ML UDCUP PO SCH (10:42)
[2020-06-23] MEDS ORDERED: MIDAZOLAM 2 MG/2 ML VIAL IV ONE (13:57)
[2020-06-23] MEDS ORDERED: fentaNYL 100 MCG/2 ML VIAL IV ONE (13:57)
[2020-06-23] MEDS: FAT EMULSION 20% 250 ML IV SCH (14:09)
[2020-06-23] MEDS: SODIUM CHLORIDE 0.45% 1,000 ML IV SCH (14:09)
[2020-06-23] MEDS: guaiFENesin 200 MG/10 ML UDCUP PO PRN (16:55)
[2020-06-23] MEDS: TRACE ELEMENTS (5) 1 ML, MULTIVITAMIN INJ 10 ML in AMINO ACIDS/DEXT/LYTES 5-15% 2,000 ML IV SCH (16:56)
[2020-06-23] MEDS: FONDAPARINUX 2.5 MG/0.5 ML SYRINGE SUBCUT SCH (20:43)
[2020-06-24] MEDS: METOCLOPRAMIDE 10 MG/2 ML VIAL IV SCH ×4 (00:26→17:06)
[2020-06-24] MEDS: PROMETHAZINE INJ 12.5 MG in SODIUM CHLORIDE 0.9% 50 ML IV SCH ×4 (03:00→21:00)
[2020-06-24] MEDS: HEPARIN LOCK FLUSH 500 UNIT/5 ML SYRINGE IV PRN (10:36)
[2020-06-24] MEDS: PANTOPRAZOLE 40 MG VIAL IV SCH (10:41)
[2020-06-24] MEDS: SODIUM CHLORIDE 0.45% 1,000 ML IV SCH (13:16)
[2020-06-24] MEDS: FAT EMULSION 20% 250 ML IV SCH (15:40)
[2020-06-24] MEDS ORDERED: SODIUM CHLORIDE IV SCH (17:00)
[2020-06-24] MEDS ORDERED: [UNRECOGNIZED DRUG - OTHER] IV SCH (17:00)
[2020-06-24] MEDS ORDERED: TRACE ELEMENTS IV SCH (17:00)
[2020-06-24] MEDS: FONDAPARINUX 2.5 MG/0.5 ML SYRINGE SUBCUT SCH (20:58)
[2020-06-25] MEDS: PROMETHAZINE INJ 12.5 MG in SODIUM CHLORIDE 0.9% 50 ML IV SCH ×4 (03:00→20:11)
[2020-06-25] MEDS: METOCLOPRAMIDE 10 MG/2 ML VIAL IV SCH ×5 (06:00→23:31)
[2020-06-25 06:06] LABS: Basophils % 0.4 % (0.0-0.8); Eosinophils # 0.1 10*3/uL (0.0-0.87); Eosinophils % 1.2 % (0.00-10.9); Hematocrit 30.7 VOL% (35.7-47.0); Hemoglobin 9.6 GM/DL (12.0-16.0); Immature Granulocytes % 2.8 %; Immature Granulocytes Absolute 0.29 #; Lymphocytes # 0.3 10*3/uL (1.4-4.0); Lymphocytes % 2.6 % (21.3-54.2); Mean Corpuscular HGB Conc 31.3 GM/DL (32-36); Mean Corpuscular Volume 78.9 FL (87-102); Mean Platelet Volume 11.3 FL (9.6-12.0); Monocytes % 12.6 % (1.7-12.7); Neutrophils % 80.4 % (38.7-73.9); Platelet Count 301 T/CUMM (130-400); Red Blood Count 3.89 MC/CUMM (3.8-5.5); Red Cell Distribution Width 15.9 % (9.3-17.3); White Blood Count 10.4 T/CUMM (4-12)
[2020-06-25 06:20] LABS: Calcium 9.7 MG/DL (8.5-10.1); Osmolality,Calculated 267.5 MOS/KG (273-304); Potassium 4.8 MMOL/L (3.5-5.1)
[2020-06-25 06:23] LABS: Albumin 2.8 G/DL (3.4-5.0); Bilirubin,Total 1.1 MG/DL (0.2-1.0); Calcium 9.8 MG/DL (8.5-10.1); Osmolality,Calculated 264.6 MOS/KG (273-304); Potassium 4.8 MMOL/L (3.5-5.1)
[2020-06-25 08:52] LABS: Hypochromasia 3+; Lymphocytes 3 % (20-55); Metamyelocytes 1 %; Microcytosis 2+; Platelet Estimate Normal; Polychromasia Slight; Segmented Neutrophils 91 % (50-85); Total Cells Counted 100
[2020-06-25] MEDS: PANTOPRAZOLE 40 MG VIAL IV SCH (09:01)
[2020-06-25] MEDS: SODIUM CHLORIDE 0.45% 1,000 ML IV SCH (15:48)
[2020-06-25] MEDS ORDERED: SODIUM CHLORIDE IV SCH (17:00)
[2020-06-25] MEDS ORDERED: [UNRECOGNIZED DRUG - OTHER] IV SCH (17:00)
[2020-06-25] MEDS ORDERED: TRACE ELEMENTS IV SCH (17:00)
[2020-06-25] MEDS: HEPARIN LOCK FLUSH 500 UNIT/5 ML SYRINGE IV PRN (17:25)
[2020-06-25] MEDS: FONDAPARINUX 2.5 MG/0.5 ML SYRINGE SUBCUT SCH (20:36)
[2020-06-26] MEDS: PROMETHAZINE INJ 12.5 MG in SODIUM CHLORIDE 0.9% 50 ML IV SCH ×3 (02:40→20:50)
[2020-06-26 06:50] LABS: Calcium 9.4 MG/DL (8.5-10.1); Osmolality,Calculated 273.4 MOS/KG (273-304); Potassium 5.7 MMOL/L (3.5-5.1)
[2020-06-26] MEDS: METOCLOPRAMIDE 10 MG/2 ML VIAL IV SCH ×4 (07:12→23:43)
[2020-06-26] MEDS: PANTOPRAZOLE 40 MG VIAL IV SCH (09:20)
[2020-06-26] MEDS: HEPARIN LOCK FLUSH 500 UNIT/5 ML SYRINGE IV PRN (17:05)
[2020-06-26] MEDS: SODIUM CHLORIDE 0.45% 1,000 ML IV SCH (17:59)
[2020-06-26] MEDS: SODIUM CHLORIDE 0.9% 1,000 ML IV SCH (18:02)
[2020-06-26] MEDS: FONDAPARINUX 2.5 MG/0.5 ML SYRINGE SUBCUT SCH (20:49)
[2020-06-27] MEDS: SODIUM CHLORIDE 0.9% 1,000 ML IV SCH (03:50)
[2020-06-27] MEDS: PROMETHAZINE INJ 12.5 MG in SODIUM CHLORIDE 0.9% 50 ML IV SCH ×4 (04:41→21:02)
[2020-06-27] MEDS: METOCLOPRAMIDE 10 MG/2 ML VIAL IV SCH ×3 (05:53→17:03)
[2020-06-27] MEDS: PANTOPRAZOLE 40 MG VIAL IV SCH (10:08)
[2020-06-27] MEDS: SODIUM CHLORIDE 0.45% 1,000 ML IV SCH (16:22)
[2020-06-27] MEDS: FONDAPARINUX 2.5 MG/0.5 ML SYRINGE SUBCUT SCH (21:03)
[2020-06-28] MEDS: PROMETHAZINE INJ 12.5 MG in SODIUM CHLORIDE 0.9% 50 ML IV SCH ×4 (04:18→21:00)
[2020-06-28] MEDS: METOCLOPRAMIDE 10 MG/2 ML VIAL IV SCH ×4 (04:19→18:18)
[2020-06-28 06:50] LABS: Basophils % 0.4 % (0.0-0.8); Eosinophils % 0.2 % (0.00-10.9); Hematocrit 26.5 VOL% (35.7-47.0); Hemoglobin 8.3 GM/DL (12.0-16.0); Immature Granulocytes % 1.5 %; Immature Granulocytes Absolute 0.12 #; Lymphocytes # 0.4 10*3/uL (1.4-4.0); Lymphocytes % 5.1 % (21.3-54.2); Mean Corpuscular HGB Conc 31.3 GM/DL (32-36); Mean Corpuscular Volume 79.3 FL (87-102); Mean Platelet Volume 11.7 FL (9.6-12.0); Monocytes % 15.1 % (1.7-12.7); Neutrophils % 77.7 % (38.7-73.9); Platelet Count 256 T/CUMM (130-400); Red Blood Count 3.34 MC/CUMM (3.8-5.5); Red Cell Distribution Width 16.2 % (9.3-17.3); White Blood Count 8.2 T/CUMM (4-12)
[2020-06-28 07:17] LABS: Albumin 2.6 G/DL (3.4-5.0); Bilirubin,Total 1.4 MG/DL (0.2-1.0); Calcium 9.1 MG/DL (8.5-10.1); Osmolality,Calculated 269.9 MOS/KG (273-304); Potassium 4.8 MMOL/L (3.5-5.1); Total Protein 7.2 G/DL (6.4-8.3)
[2020-06-28] MEDS: PANTOPRAZOLE 40 MG VIAL IV SCH (10:17)
[2020-06-28] MEDS: SODIUM CHLORIDE 0.45% 1,000 ML IV SCH (18:18)
[2020-06-28] MEDS: FONDAPARINUX 2.5 MG/0.5 ML SYRINGE SUBCUT SCH (20:51)
[2020-06-29] MEDS: PROMETHAZINE INJ 12.5 MG in SODIUM CHLORIDE 0.9% 50 ML IV SCH ×4 (03:00→21:22)
[2020-06-29] MEDS: METOCLOPRAMIDE 10 MG/2 ML VIAL IV SCH ×4 (05:31→17:02)
[2020-06-29] MEDS: PANTOPRAZOLE 40 MG VIAL IV SCH (08:05)
[2020-06-29] MEDS: SODIUM CHLORIDE 0.9% 1,000 ML IV SCH (11:03)
[2020-06-29] MEDS: FONDAPARINUX 2.5 MG/0.5 ML SYRINGE SUBCUT SCH (21:22)
[2020-06-30] MEDS: METOCLOPRAMIDE 10 MG/2 ML VIAL IV SCH ×4 (00:20→17:41)
[2020-06-30] MEDS: PROMETHAZINE INJ 12.5 MG in SODIUM CHLORIDE 0.9% 50 ML IV SCH ×4 (03:00→20:47)
[2020-06-30] MEDS: SODIUM CHLORIDE 0.9% 1,000 ML IV SCH (06:19)
[2020-06-30 07:35] LABS: Calcium 8.8 MG/DL (8.5-10.1); Osmolality,Calculated 269.7 MOS/KG (273-304); Potassium 4.6 MMOL/L (3.5-5.1)
[2020-06-30] MEDS: PANTOPRAZOLE 40 MG VIAL IV SCH (08:48)
[2020-06-30] MEDS: RIVAROXABAN 10 MG TABLET PO SCH (10:22)
[2020-06-30] MEDS: HEPARIN LOCK FLUSH 500 UNIT/5 ML SYRINGE IV PRN (17:30)
[2020-07-01] MEDS: SODIUM CHLORIDE 0.9% 1,000 ML IV SCH ×2 (01:58→22:00)
[2020-07-01] MEDS: METOCLOPRAMIDE 10 MG/2 ML VIAL IV SCH ×2 (02:24→06:46)
[2020-07-01 06:06] LABS: Calcium 8.2 MG/DL (8.5-10.1); Osmolality,Calculated 266.7 MOS/KG (273-304); Potassium 4.3 MMOL/L (3.5-5.1)
[2020-07-01] MEDS: PROMETHAZINE INJ 12.5 MG in SODIUM CHLORIDE 0.9% 50 ML IV SCH ×4 (06:46→22:26)
[2020-07-01] MEDS: RIVAROXABAN 10 MG TABLET PO SCH (08:47)
[2020-07-01] MEDS: PANTOPRAZOLE 40 MG TABLET PO SCH (10:12)
[2020-07-01] MEDS: RIVAROXABAN 15 MG TABLET PO SCH (10:13)
[2020-07-02] MEDS: PROMETHAZINE INJ 12.5 MG in SODIUM CHLORIDE 0.9% 50 ML IV SCH ×3 (04:35→21:08)
[2020-07-02] MEDS: RIVAROXABAN 15 MG TABLET PO SCH (09:27)
[2020-07-02] MEDS: PANTOPRAZOLE 40 MG TABLET PO SCH (09:27)
[2020-07-02] MEDS: HEPARIN LOCK FLUSH 500 UNIT/5 ML SYRINGE IV PRN (17:20)
[2020-07-03] MEDS: PROMETHAZINE INJ 12.5 MG in SODIUM CHLORIDE 0.9% 50 ML IV SCH ×3 (06:48→20:05)
[2020-07-03] MEDS: PANTOPRAZOLE 40 MG TABLET PO SCH (09:43)
[2020-07-03] MEDS: RIVAROXABAN 15 MG TABLET PO SCH (09:43)
[2020-07-03] MEDS: HEPARIN LOCK FLUSH 500 UNIT/5 ML SYRINGE IV PRN (17:36)
[2020-07-03] MEDS: SODIUM CHLORIDE 0.9% 1,000 ML IV SCH (19:07)
[2020-07-04] MEDS: SODIUM CHLORIDE 0.9% 1,000 ML IV SCH ×4 (00:45→19:44)
[2020-07-04] MEDS: PROMETHAZINE INJ 12.5 MG in SODIUM CHLORIDE 0.9% 50 ML IV SCH ×4 (07:23→20:32)
[2020-07-04] MEDS: PANTOPRAZOLE 40 MG TABLET PO SCH (09:46)
[2020-07-04] MEDS: RIVAROXABAN 15 MG TABLET PO SCH (09:46)
[2020-07-04] MEDS: HEPARIN LOCK FLUSH 500 UNIT/5 ML SYRINGE IV PRN (09:50)
[2020-07-05] MEDS: PROMETHAZINE INJ 12.5 MG in SODIUM CHLORIDE 0.9% 50 ML IV SCH (02:52)
[2020-07-05] MEDS ORDERED: PROMETHAZINE INJ 12.5 MG in SODIUM CHLORIDE 0.9% 50 ML IV PRN (08:30)
[2020-07-05 08:41] LABS: Basophils % 0.3 % (0.0-0.8); Eosinophils # 0.2 10*3/uL (0.0-0.87); Eosinophils % 2.3 % (0.00-10.9); Hematocrit 23.9 VOL% (35.7-47.0); Hemoglobin 7.4 GM/DL (12.0-16.0); Immature Granulocytes % 1.3 %; Lymphocytes # 0.4 10*3/uL (1.4-4.0); Lymphocytes % 5.9 % (21.3-54.2); Mean Corpuscular Volume 80.7 FL (87-102); Neutrophils % 80.2 % (38.7-73.9); Platelet Count 252 T/CUMM (130-400); Red Blood Count 2.96 MC/CUMM (3.8-5.5); Red Cell Distribution Width 18.3 % (9.3-17.3); White Blood Count 7.4 T/CUMM (4-12)
[2020-07-05 09:11] LABS: Calcium 8.1 MG/DL (8.5-10.1); Osmolality,Calculated 274.8 MOS/KG (273-304); Potassium 3.8 MMOL/L (3.5-5.1)
[2020-07-05 09:13] LABS: Bilirubin,Total 1.9 MG/DL (0.2-1.0); Calcium 7.7 MG/DL (8.5-10.1); Osmolality,Calculated 276.7 MOS/KG (273-304); Total Protein 5.3 G/DL (6.4-8.3)
[2020-07-05] MEDS: RIVAROXABAN 15 MG TABLET PO SCH (09:16)
[2020-07-05] MEDS: PANTOPRAZOLE 40 MG TABLET PO SCH (09:16)
[2020-07-05 09:45] LABS: Hypochromasia 1+; Lymphocytes 2 % (20-55); Microcytosis 1+; Platelet Estimate Adequate; Segmented Neutrophils 87 % (50-85); Total Cells Counted 100
[2020-07-05] MEDS ORDERED: SODIUM CHLORIDE 0.9% 1,000 ML IV PRN (11:08)
[2020-07-05 15:33] LABS: Bilirubin,Urine Negative (Negative); Blood, Urine Negative (Negative); Calcium Oxalate Crystals,Urine Occasional /HPF (Few); Glucose,Urine (UA) Negative (Negative); Hyaline Casts,Urine 11 /LPF (0-3); Ketones,Urine Negative (Negative); Mucus,Urine Moderate /LPF (Occasional); Nitrite,Urine Negative (Negative); Protein,Urine Negative; RBC,Urine 6 /HPF (0-4); Squamous Epithelial Cell,Urine Occasional /HPF (0-10); Urine Appearance Slightly Hazy (Clear); Urine Color Amber (Yellow); Urine Specific Gravity 1.024 (1.001-1.035); Urine Urobilinogen < 2.0 EU/DL (0.2-1.0); WBC,Urine 147 /HPF (0-6)
[2020-07-05] MEDS: HEPARIN LOCK FLUSH 500 UNIT/5 ML SYRINGE IV PRN (18:10)
[2020-07-05 21:54] VITALS: BP 123/65
[2020-07-06] MEDS: SODIUM CHLORIDE 0.9% 1,000 ML IV SCH ×2 (01:52→01:53)
[2020-07-06] MEDS: RIVAROXABAN 15 MG TABLET PO SCH (08:55)
[2020-07-06] MEDS: PANTOPRAZOLE 40 MG TABLET PO SCH (08:55)
== END 2020-07-06 11:52 | disposition home health service (06) | DRG 327 ==
LOC: N.OR 07:02 → N.SDSINP 07:04 → N.3E 13:35
PROVIDERS: ADMIT Surgery; ATTEND Surgery